=== PATIENT | female | born 1945 | race Caucasian/White ===

== ENCOUNTER → 2017-02-12 | Outpatient (CLI) | payer MEDICARE ==
--- NOTE | 2017-02-12 13:57 | MM ---
Reason for exam: screening (asymptomatic). Last mammogram was performed 2 years and 8 months ago. History: Patient is postmenopausal. Family history of premenopausal breast cancer in maternal aunt at age 46. Physical Findings: A clinical breast exam by your physician is recommended on an annual basis and results should be correlated with mammographic findings. MG Screening Mammo w CAD Bilateral CC and MLO view(s) were taken. Prior study comparison: June 11, 2014, bilateral MG screening mammo w CAD. April 09, 2012, bilateral digital screening mammo w/CAD. The breast tissue is heterogeneously dense. This may lower the sensitivity of mammography. There is chronic nodularity bilaterally. There is no dominant lesion. No significant changes when compared with prior studies. ASSESSMENT: Benign, BI-RAD 2 RECOMMENDATION: Routine screening mammogram of both breasts in 1 year.
== END | disposition home or self-care (01) ==
LOC: RADMAMWWP 08:09
PROVIDERS: ATTEND Family Medicine
DX: Z12.31 Encounter for screening mammogram for malignant neoplasm of breast (principal)

== ENCOUNTER → 2018-02-04 | Outpatient (CLI) | payer MEDICARE ==
--- NOTE | 2018-02-04 10:31 | BD ---
EXAMINATION TYPE: Axial Bone Density DATE OF EXAM: 02/04/2018 COMPARISON:2013 CLINICAL HISTORY: screening Height: 5'1 Weight: 166 FRAX RISK QUESTIONS: Secondary Osteoporosis: RISK FACTORS HISTORY OF: Postmenopausal woman: y MEDICATIONS: Additional Medications: cholesterol, anti depressant, bladder leakage, Flonase Additional History: EXAM MEASUREMENTS: Bone mineral densitometry was performed using the [employer] System. Bone mineral density as measured about the Lumbar spine is: ----- L1-L4(G/cm2): 1.365 T Score Values are as follows: ----- L2: 1.5 ----- L3: 2.2 ----- L4: 2.0 ----- L1-L4: 1.5 Bone mineral density has: Decreased -4.2% since study of: 06/11/2014 Bone mineral density about the R hip (g/cm2): 0.841 Bone mineral density about the L hip (g/cm2): 0.890 T Score values are as follows: -----R Neck: -1.4 -----L Neck: -1.1 -----R Total: -1.1 -----L Total: -0.6 Bone mineral density has: Decreased -5.3% since study of: 06/11/2014 IMPRESSION: Osteopenia (T Score between -2.5 and -1) at the femoral neck level in both hips. There is slightly increased risk of fracture and the patient may be considered for treatment. Re-Screen 2-5 years. NOTE: T-SCORE=SD OF THE YOUNG ADULT MEAN.
== END | disposition home or self-care (01) ==
LOC: RADBDWWP 08:34
PROVIDERS: ATTEND Family Medicine
DX: M85.89 Other specified disorders of bone density and structure, multiple sites (principal)
CPT/HCPCS: 77080

== ENCOUNTER → 2019-09-16 | Outpatient (CLI) | payer MEDICARE ==
--- NOTE | 2019-09-16 08:51 | MM ---
Reason for exam: clinical finding. Last mammogram was performed 1 year and 6 months ago. History: Patient is postmenopausal and history of other cancer. Family history of premenopausal breast cancer in maternal aunt at age 46. Indicated problem(s): pain in both breasts. Physical Findings: Nurse Summary: 0.5 x 0.5cm nodule in the left breast at 2 o'clock (nurse ts). MG 3D Diag Mammo W/Cad BALTA Bilateral CC and MLO view(s) were taken. Prior study comparison: March 21, 2018, bilateral MG 3d screening mammo w/cad. February 12, 2017, bilateral MG screening mammo w CAD. The breast tissue is heterogeneously dense. This may lower the sensitivity of mammography. There is chronic nodularity bilaterally. Nodular density far upper outer left breast may reflect lymph node. Ultrasound recommended. These results were verbally communicated with the patient and result sheet given to the patient on 09/16/19. ASSESSMENT: Incomplete: need additional imaging evaluation, BI-RAD 0 RECOMMENDATION: Ultrasound of the left breast. Manage patient on a clinical basis.
--- NOTE | 2019-09-16 08:53 | USB ---
Reason for exam: additional evaluation requested from abnormal screening. History: Patient is postmenopausal and history of other cancer. Family history of premenopausal breast cancer in maternal aunt at age 46. US Breast LT Left complete breast ultrasound includes all four quadrants, the retroareolar region and axilla. Finding demonstrates a 0.3 x 0.3 x 0.3cm oval, cystic lesion at 3 o'clock, a 0.8 x 0.8 x 0.4cm lymph node at 3 o'clcok and a 1.6 x 1.2 x 0.7cm lymph node at the axilla. These results were verbally communicated with the patient and result sheet given to the patient on 09/16/19. ASSESSMENT: Benign, BI-RAD 2 RECOMMENDATION: Routine screening mammogram of both breasts in 1 year. Manage patient on a clinical basis.
== END | disposition home or self-care (01) ==
LOC: RADMAMWWP 07:17
PROVIDERS: ATTEND Family Medicine
DX: N64.4 Mastodynia (principal)
CPT/HCPCS: 77066; 76641; G0279; 77062

== ENCOUNTER 2020-02-10 12:31 | Emergency (ER) | payer MEDICARE ==
[2020-02-10 12:37] VITALS: BP 94/61; PULSE 55; RESP 16; TEMP 97.7
[2020-02-10] MEDS ORDERED: DIPH,PERTUS(ACELL)TETVAC-LF 0.5 ML VIAL IM ONE (12:49)
[2020-02-10] MEDS ORDERED: LIDOCAINE 1%-EPI 1:100,000 20 ML VIAL SQ STA (12:50)
--- NOTE | 2020-02-10 12:57 | ED ---
Lower Extremity Injury HPI - General Chief Complaint: Extremity Injury, Lower Stated Complaint: fall/leg lac Time Seen by Provider: 02/10/20 12:39 Source: patient, RN notes reviewed, old records reviewed Mode of arrival: wheelchair Limitations: no limitations - History of Present Illness Initial Comments: Patient is a 74-year-old female who presents the emergency department today for evaluation for laceration over her right leg. Patient reports that she was carrying a cinderblock when she tripped and dropped a causing laceration over the right lower leg. She reports that her tetanus shot is not up-to-date. She denies any other injuries including head or neck pain related to the fall. Patient reports that she has full range of motion of the foot and ankle. - Related Data Previous Rx's Medication Instructions Recorded Sulfamethox-Tmp 800-160Mg [Bactrim 2 tab PO Q12HR #40 tab 02/10/20 DS 800-160 mg] Allergies Allergy/AdvReac Type Severity Reaction Status Date / Time Penicillins Allergy Swelling Verified 02/10/20 12:37 Review of Systems ROS Statement: Those systems with pertinent positive or pertinent negative responses have been documented in the HPI. ROS Other: All systems not noted in ROS Statement are negative. Past Medical History Past Medical History: Hyperlipidemia History of Any Multi-Drug Resistant Organisms: None Reported Past Surgical History: Cholecystectomy, Tonsillectomy Past Psychological History: Depression Smoking Status: Never smoker Past Alcohol Use History: None Reported Past Drug Use History: None Reported General Exam - General Exam Comments Initial Comments: 74-year-old female. No significant distress. Limitations: no limitations General appearance: alert Head exam: Present: atraumatic, normocephalic, normal inspection Eye exam: Present: normal appearance, PERRL, EOMI. Absent: scleral icterus, conjunctival injection, periorbital swelling ENT exam: Present: normal exam, mucous membranes moist Neck exam: Present: normal inspection. Absent: tenderness, meningismus, lymphadenopathy Cardiovascular Exam: Present: regular rate, normal rhythm, normal heart sounds. Absent: systolic murmur, diastolic murmur, rubs, gallop, clicks GI/Abdominal exam: Present: soft, normal bowel sounds. Absent: distended, tenderness, guarding, rebound, rigid Extremities exam: Present: normal inspection, full ROM, normal capillary refill. Absent: tenderness, pedal edema, joint swelling, calf tenderness Right Knee exam: Present: normal inspection, full ROM Lower Leg exam: Present: laceration (Patient has a 10 cm laceration over the right anterior lower leg near the ankle.). Absent: normal inspection Ankle exam: Present: normal inspection, full ROM Foot/Toe exam: Present: normal inspection, full ROM Neurovascular tendon exam: Present: no vascular compromise Back exam: Present: normal inspection Neurological exam: Present: alert, oriented X3, CN II-XII intact Psychiatric exam: Present: normal affect, normal mood Course Vital Signs 02/10/20 12:32 Temperature 97.7 F Pulse Rate 55 L Respiratory 16 Rate Blood Pressure 94/61 O2 Sat by Pulse 96 Oximetry Procedures - Laceration Laceration #1 Size (cm): 10 Description: linear Depth: simple, single layer Anesthetic Used: lidocaine 1% Anesthesia Technique: local infiltration Amount (mls): 10 Pre-repair: wound explored, irrigated extensively Type of Sutures: nylon Size of Sutures: 4-0 Number of Sutures: 12 Technique: simple, interrupted Patient Tolerated Procedure: well, no complications Medical Decision Making - Medical Decision Making 74-year-old female presents emergency department today for evaluation for concern for laceration of her right lower leg. Patient's cut it on a cinderblock that she tripped and fell drop in her hand. Patient is a 10 cm laceration the wound was closed with 12 sutures. Wound was thoroughly irriga chriss. X-ray shows no fracture or soft tissue foreign bodies. Patient tolerated procedure well. Discussed putting the Patient on antibiotics to ensure no infection and discussed wound care. - Radiology Data Radiology results: report reviewed Soft tissue laceration over the posterior medial distal leg. No radiopaque foreign body. No acute osseous abnormality. Disposition Clinical Impression: Leg laceration Disposition: HOME SELF-CARE Condition: Good Instructions (If sedation given, give patient instructions): Laceration (ED) Additional Instructions: Please return to the emergency room in 8-10 days to have sutures removed. Please leave wound covered for the first 24-48 hours and then leave open to air after that time. Please use clean soap and water to clean the suture area to prevent scabbing over the top of your sutures. Please follow-up with your primary care doctor early next week for wound recheck. Please watch for any signs of infection which may include but not limited to increased pain, swelling, redness, fever or chills. Please return to the emergency room if any signs of infection do occur. Please return to the emergency room for any other concerns or complications. Prescriptions: Sulfamethox-Tmp 800-160Mg [Bactrim DS 800-160 mg] 2 tab PO Q12HR #40 tab Is patient prescribed a controlled substance at d/c from ED?: No Referrals: Meenu Bates DO [Primary Care Provider] - 1-2 days Time of Disposition: 14:17
--- NOTE | 2020-02-10 13:21 | XR ---
EXAMINATION TYPE: XR tibia fibula RT DATE OF EXAM: 02/10/2020 CLINICAL HISTORY: Laceration on right lower extremity from fall TECHNIQUE: Two views of the right tibia and fibula are obtained. COMPARISON: None. FINDINGS: There is no acute fracture or dislocation seen in the right tibia or fibula. The ankle shannon nt appears within normal limits. There is medial compartment degenerative change of the right knee. T here is soft tissue irregularity, laceration, and subcutaneous gas of the medial and posterior distal lower leg. No evidence of radiopaque foreign body. IMPRESSION: Soft tissue laceration of the posteromedial distal lower leg. No radiopaque foreign body. No acute osseous abnormality.
[2020-02-10] MEDS ORDERED: TOPICAL SKIN ADHESIVE 1 EACH AMP TOPICAL ONE (14:05)
== END 2020-02-10 14:25 | disposition home or self-care (01) ==
LOC: EC 12:31
DX: S81.811A Laceration without foreign body, right lower leg, initial encounter (principal); Z23 Encounter for immunization; Z88.0 Allergy status to penicillin; W20.8XXA Other cause of strike by thrown, projected or falling object, initial encounter
CPT/HCPCS: 12004; 90471; 90715; 99283

== ENCOUNTER → 2020-02-22 | Outpatient (CLI) | payer MEDICARE ==
--- NOTE | 2020-02-22 10:56 | US ---
EXAMINATION TYPE: US venous doppler duplex LE RT DATE OF EXAM: 02/22/2020 10:48 AM COMPARISON: NONE CLINICAL HISTORY: Right lower extremity calf pain. Pain and swelling SIDE PERFORMED: Right TECHNIQUE: The lower extremity deep venous system is examined utilizing real time linear array sonog hannah with graded compression, doppler sonography and color-flow sonography. VESSELS IMAGED: External Iliac Vein (EIV) Common Femoral Vein Deep Femoral Vein Greater Saphenous Vein * Femoral Vein Popliteal Vein Small Saphenous Vein * Proximal Calf Veins (* superficial vessels) Right Leg: Negative for DVT Grayscale, color doppler, spectral doppler imaging performed of the deep veins of the right lower ext remity. There is normal flow, compressibility, vascular waveforms. IMPRESSION: No ultrasound evidence for acute DVT in the right lower extremity.
== END | disposition home or self-care (01) ==
LOC: RADUSWWP 10:29
PROVIDERS: ATTEND Family Medicine
DX: M79.604 Pain in right leg (principal)

== ENCOUNTER → 2020-02-26 | Outpatient (CLI) | payer MEDICARE ==
[2020-02-26 13:15] LABS: Basophils # (A) 0.1 k/uL (0-0.2); Basophils % (A) 1 %; Eosinophils # (A) 0.1 k/uL (0-0.7); Eosinophils % (A) 1 %; HCT 37.5 % (34.0-46.0); HGB 11.8 gm/dL (11.4-16.0); Lymphocytes # (A) 1.1 k/uL (1.0-4.8); Lymphocytes % (A) 18 %; MCH 29.6 pg (25.0-35.0); MCHC 31.4 g/dL (31.0-37.0); MCV 94.2 fL (80.0-100.0); Mean Platelet Volume 6.8; Monocytes # (A) 0.3 k/uL (0-1.0); Monocytes % (A) 5 %; Neutrophils # (A) 4.5 k/uL (1.3-7.7); Neutrophils % (A) 74 %; Platelet Count 428 k/uL (150-450); RBC 3.98 m/uL (3.80-5.40); RDW 13.8 % (11.5-15.5)
[2020-02-26 18:54] LABS: African American GFR (CKD) 64.3 (60.0-200.0); Albumin 3.8 g/dL (3.80-4.90); Albumin/Globulin Ratio 1.9 (1.60-3.17); Anion Gap 7.3 mmol/L (4.00-12.00); Calcium 9.3 mg/dL (8.7-10.3); Carbon Dioxide 26.7 mmol/L (21.6-31.8); Non-African American GFR(CKD) 55.5 (60.0-200.0); Potassium 4.7 mmol/L (3.5-5.5); Total Bilirubin 0.3 mg/dL (0.3-1.2); Total Protein 5.8 g/dL (6.2-8.2)
== END | disposition home or self-care (01) ==
LOC: LABWHC1 11:54
PROVIDERS: ATTEND Podiatrist
DX: I73.9 Peripheral vascular disease, unspecified (principal); Z88.0 Allergy status to penicillin; L97.812 Non-pressure chronic ulcer of other part of right lower leg with fat layer exposed; L03.115 Cellulitis of right lower limb; I10 Essential (primary) hypertension
CPT/HCPCS: 36415; 80053; 84134; 85025

== ENCOUNTER → 2020-03-01 | Outpatient (CLI) | payer MEDICARE ==
--- NOTE | 2020-03-02 12:15 | P.ARTDOP ---
Arterial Doppler LOWER EXTREMITY ARTERIAL DOPPLER: DATE OF SERVICE: 03/01/2020 Reason for study: Ulcer right calf. Doppler waveforms: Multiphasic bilaterally throughout, digits somewhat blunted. Pulse volume recording: []. Pressure gradients: None. Ankle-brachial indices: Greater than 1 bilaterally. Toe brachial indices: [] on the right, [] on the left Impression: Normal study. Flattened toe waveforms more likely related to peripheral vasoconstriction..
== END | disposition home or self-care (01) ==
LOC: RADUSWWP 08:26
PROVIDERS: ATTEND Podiatrist
DX: I73.9 Peripheral vascular disease, unspecified (principal); Z88.0 Allergy status to penicillin
CPT/HCPCS: 93922; 93923

== ENCOUNTER 2020-07-13 22:07 | Emergency (ER) | payer MEDICARE ==
[2020-07-13 22:11] VITALS: TEMP 99.6
[2020-07-13] MEDS ORDERED: SODIUM CHLORIDE 0.9% 1,000 ML IV STA (22:35)
[2020-07-13] MEDS ORDERED: METOCLOPRAMIDE 5 MG/ML 2 ML VIAL IVP STA (23:02)
[2020-07-13] MEDS ORDERED: MORPHINE SULFATE 4 MG/ML SYRINGE IVP STA (23:02)
[2020-07-13] MEDS ORDERED: SENNOSIDES-DOCUSATE SODIUM 1 EACH TAB PO STA (23:02)
--- NOTE | 2020-07-13 23:03 | ED ---
Abdominal Pain HPI - General Chief Complaint: Abdominal Pain Stated Complaint: Constipation Time Seen by Provider: 07/13/20 22:25 Source: patient, RN notes reviewed, old records reviewed Mode of arrival: ambulatory Limitations: no limitations - History of Present Illness Initial Comments: This is a 74-year-old female who states that she does have history of constipation coming with bowel issues. Patient is concern for diffuse abdominal pain inability to have a successful bowel movement for a few days now. Patient does have small bowel movements but does not feel like there fall. Otherwise she has no nausea no vomiting no fevers no other complaints. She has had history of issues with constipation for years MD Complaint: abdominal pain, other (Constipation) -: days(s) Location: diffuse, epigastric, suprapubic Radiation: epigastric, suprapubic Migration to: epigastric, suprapubic Severity: moderate Quality: cramping, aching Consistency: constant Improves With: nothing Worsens With: nothing Associated Symptoms: nausea, vomiting - Related Data Home Medications Medication Instructions Recorded Confirmed Aspirin 81 mg PO DAILY 07/13/20 07/13/20 Atorvastatin Calcium [Lipitor] 40 mg PO DAILY 07/13/20 07/13/20 Calcium Carbonate [Calcium] 600 mg PO DAILY 07/13/20 07/13/20 Celecoxib [CeleBREX] 200 mg PO DAILY 07/13/20 07/13/20 DULoxetine HCL [Cymbalta] 60 mg PO DAILY 07/13/20 07/13/20 Docusate [Colace] 100 mg PO Q6H PRN 07/13/20 07/13/20 Fluticasone Nasal [place] [Flonase 1 spray EA NOSTRIL DAILY 07/13/20 07/13/20 Nasal [place]] Glucosamine Sulfate 500 mg PO DAILY 07/13/20 07/13/20 L.acidoph,Paracasei, B.lactis 1 tab PO DAILY 07/13/20 07/13/20 [Probiotic] Loratadine [Claritin] 10 mg PO DAILY PRN 07/13/20 07/13/20 Lubiprostone [Amitiza] 48 mcg PO DAILY 07/13/20 07/13/20 Magnesium Citrate [Citrate of 296 ml PO ONCE PRN 07/13/20 07/13/20 Magnesia] Magnesium Oxide [Mag-Ox] 250 mg PO DAILY 07/13/20 07/13/20 Multivitamins, Thera [Multivitamin 1 tab PO DAILY 07/13/20 07/13/20 (formulary)] Na Phos,M-B/Na Phos,Di-Ba [Fleet 133 ml RECTAL Q12H PRN 07/13/20 07/13/20 Adult] Omeprazole 20 mg PO DAILY 07/13/20 07/13/20 buPROPion SR [Wellbutrin SR] 100 mg PO DAILY 07/13/20 07/13/20 polyethylene glycoL 3350 [Miralax] 17 gm PO DAILY PRN 07/13/20 07/13/20 Allergies Allergy/AdvReac Type Severity Reaction Status Date / Time Penicillins Allergy Swelling Verified 07/13/20 23:06 Review of Systems ROS Statement: Those systems with pertinent positive or pertinent negative responses have been documented in the HPI. ROS Other: All systems not noted in ROS Statement are negative. Past Medical History Past Medical History: Hyperlipidemia, Rheumatoid Arthritis (RA) Additional Past Medical History / Comment(s): constipation History of Any Multi-Drug Resistant Organisms: None Reported Past Surgical History: Cholecystectomy, Tonsillectomy Past Psychological History: Depression Smoking Status: Never smoker Past Alcohol Use History: None Reported Past Drug Use History: None Reported General Exam Limitations: no limitations General appearance: alert, in no apparent distress Head exam: Present: atraumatic, normocephalic, normal inspection Eye exam: Present: normal appearance, PERRL, EOMI. Absent: scleral icterus, conjunctival injection, periorbital swelling ENT exam: Present: normal exam, mucous membranes moist Neck exam: Present: normal inspection. Absent: tenderness, meningismus, lymphadenopathy Respiratory exam: Present: normal lung sounds bilaterally. Absent: respiratory distress, wheezes, rales, rhonchi, stridor Cardiovascular Exam: Present: regular rate, normal rhythm, normal heart sounds. Absent: systolic murmur, diastolic murmur, rubs, gallop, clicks GI/Abdominal exam: Present: soft, normal bowel sounds. Absent: distended, tenderness, guarding, rebound, rigid Extremities exam: Present: normal inspection, full ROM, normal capillary refill. Absent: tenderness, pedal edema, joint swelling, calf tenderness Back exam: Present: normal inspection Neurological exam: Present: alert, oriented X3, CN II-XII intact Psychiatric exam: Present: normal affect, normal mood Skin exam: Present: warm, dry, intact, normal color. Absent: rash Course Vital Signs 07/13/20 07/14/20 22:09 01:31 Temperature 99.6 F Pulse Rate 94 81 Respiratory 20 16 Rate Blood Pressure 150/79 154/87 O2 Sat by Pulse 99 98 Oximetry - Reevaluation(s) Reevaluation #1: Medical record is reviewed Patient without successful bowel movement here in the ER Pain and symptoms are improved Patient is informed of results and questions are answered Medical Decision Making - Medical Decision Making 74 female of constipation, patient has no severe serious noted constipation or obstruction here in the ER, given an enema here in the ER with no significant success the patient can be discharged home - Lab Data Result diagrams: 07/13/20 22:51 07/13/20 22:51 Lab Results 07/13/20 07/13/20 07/13/20 Range/Units 22:51 22:51 22:51 WBC 12.7 H (3.8-10.6) k/uL RBC 4.94 (3.80-5.40) m/uL Hgb 14.9 (11.4-16.0) gm/dL Hct 43.9 (34.0-46.0) % MCV 88.9 (80.0-100.0) fL MCH 30.2 (25.0-35.0) pg MCHC 34.0 (31.0-37.0) g/dL RDW 12.4 (11.5-15.5) % Plt Count 271 (150-450) k/uL MPV 6.6 Neutrophils % 83 % Lymphocytes % 9 % Monocytes % 5 % Eosinophils % 1 % Basophils % 1 % Neutrophils # 10.5 H (1.3-7.7) k/uL Lymphocytes # 1.2 (1.0-4.8) k/uL Monocytes # 0.7 (0-1.0) k/uL Eosinophils # 0.1 (0-0.7) k/uL Basophils # 0.1 (0-0.2) k/uL Sodium 135 L (137-145) mmol/L Potassium 4.2 (3.5-5.1) mmol/L Chloride 101 (98-107) mmol/L Carbon Dioxide 28 (22-30) mmol/L Anion Gap 6 mmol/L BUN 13 (7-17) mg/dL Creatinine 0.56 (0.52-1.04) mg/dL Est GFR (CKD-EPI)AfAm >90 (>60 ml/min/1.73 sqM) Est GFR (CKD-EPI)NonAf >90 (>60 ml/min/1.73 sqM) Glucose 116 H (74-99) mg/dL Plasma Lactic Acid Pop 1.4 (0.7-2.0) mmol/L Calcium 9.3 (8.4-10.2) mg/dL Total Bilirubin 0.6 (0.2-1.3) mg/dL AST 36 (14-36) U/L ALT 31 (4-34) U/L Alkaline Phosphatase 85 (38-126) U/L Total Protein 6.8 (6.3-8.2) g/dL Albumin 4.1 (3.5-5.0) g/dL Amylase 48 (30-110) U/L Lipase 89 (23-300) U/L - Radiology Data Radiology results: report reviewed (X-ray abdominal series and chest as well as CT of the abdomen and pelvis is negative for acute disease), image reviewed Disposition Clinical Impression: Constipation, Abdominal pain Disposition: HOME SELF-CARE Condition: Good Instructions (If sedation given, give patient instructions): Abdominal Pain (ED) Is patient prescribed a controlled substance at d/c from ED?: No Referrals: Meenu Bates DO [Primary Care Provider] - 1-2 days
[2020-07-13 23:12] LABS: Basophils # (A) 0.1 k/uL (0-0.2); Basophils % (A) 1 %; Eosinophils # (A) 0.1 k/uL (0-0.7); Eosinophils % (A) 1 %; HCT 43.9 % (34.0-46.0); HGB 14.9 gm/dL (11.4-16.0); Lymphocytes # (A) 1.2 k/uL (1.0-4.8); Lymphocytes % (A) 9 %; MCH 30.2 pg (25.0-35.0); MCV 88.9 fL (80.0-100.0); Mean Platelet Volume 6.6; Monocytes # (A) 0.7 k/uL (0-1.0); Monocytes % (A) 5 %; Neutrophils # (A) 10.5 k/uL (1.3-7.7); Neutrophils % (A) 83 %; Platelet Count 271 k/uL (150-450); RBC 4.94 m/uL (3.80-5.40); RDW 12.4 % (11.5-15.5); WBC 12.7 k/uL (3.8-10.6)
[2020-07-13 23:28] LABS: ALT 31 U/L (4-34); AST 36 U/L (14-36); African American GFR (CKD) >90 (>60 ml/min/1.73 sqM); Albumin 4.1 g/dL (3.5-5.0); Alkaline Phosphatase 85 U/L (38-126); Amylase 48 U/L (30-110); Anion Gap 6 mmol/L; Blood Urea Nitrogen 13 mg/dL (7-17); Calcium 9.3 mg/dL (8.4-10.2); Carbon Dioxide 28 mmol/L (22-30); Chloride 101 mmol/L (98-107); Glucose 116 mg/dL (74-99); Lipase 89 U/L (23-300); Non-African American GFR(CKD) >90 (>60 ml/min/1.73 sqM); Potassium 4.2 mmol/L (3.5-5.1); Sodium 135 mmol/L (137-145); Total Bilirubin 0.6 mg/dL (0.2-1.3); Total Protein 6.8 g/dL (6.3-8.2)
--- NOTE | 2020-07-14 00:18 | XR ---
EXAM: XR Abdomen, 2 Views and XR Chest, 1 View CLINICAL HISTORY: None. TECHNIQUE: Frontal view of the chest, frontal view of the abdomen/pelvis and upright or decubitus view of the abdomen. COMPARISON: No relevant prior studies available. FINDINGS: Lungs: Unremarkable. No consolidation. Pleural space: Unremarkable. No pneumothorax. Heart: Unremarkable. No cardiomegaly. Mediastinum: Unremarkable. Intraperitoneal space: No free air. Gastrointestinal tract: Extensive gas within the upper aspect of the colon. Appearance of increased stool within the left aspect of the colon. No evidence of bowel obstruction. Organs: Evidence of previous cholecystectomy. Bones/joints: Unremarkable. IMPRESSION: Scattered colon gas. No evidence of small bowel obstruction or free intraperitoneal air.
[2020-07-14] MEDS ORDERED: DICYCLOMINE 10 MG/ML 2 ML AMP IM STA (01:03)
[2020-07-14 01:32] VITALS: BP 154/87; PULSE 81; RESP 16
--- NOTE | 2020-07-14 01:41 | CT ---
EXAM: CT Abdomen and Pelvis With Intravenous Contrast CLINICAL HISTORY: Pain. TECHNIQUE: Axial computed tomography images of the abdomen and pelvis with intravenous contrast. CTDI is 13.57 mGy and DLP is 632 mGy-cm. This CT exam was performed using one or more of the following dose reduction techniques: automated exposure control, adjustment of the mA and/or kV according to patient size, and/or use of iterative reconstruction technique. COMPARISON: No relevant prior studies available. FINDINGS: Lung bases: Unremarkable. No mass. No consolidation. ABDOMEN: Liver: Several hepatic cysts with a 3.5 cm cyst in the posterior right lobe. No mass. Gallbladder and bile ducts: Prominent intrahepatic bile ducts. Previous cholecystectomy. Large common bile duct at 12 mm. Pancreas: Unremarkable. No mass. No ductal dilation. Spleen: Unremarkable. No splenomegaly. Adrenals: Unremarkable. No mass. Kidneys and ureters: Unremarkable. No solid mass. No hydronephrosis. Stomach and bowel: There appears to be distal perirectal edema which may be related to proctitis. No evidence of bowel obstruction. Extensive stool and fluid within the colon. PELVIS: Appendix: No findings to suggest acute appendicitis. Bladder: Unremarkable. No mass. Reproductive: Unremarkable as visualized. ABDOMEN and PELVIS: Intraperitoneal space: Unremarkable. No free air. No significant fluid collection. Bones/joints: No acute fracture. No dislocation. Soft tissues: Unremarkable. Vasculature: Unremarkable. No abdominal aortic aneurysm. Lymph nodes: Unremarkable. No enlarged lymph nodes. IMPRESSION: There appears to be distal perirectal edema which may be related to proctitis. Intrahepatic and extra hepatic bile duct dilatation, even given allowances for patient age and previous cholecystectomy. Correlate with liver function tests.
== END 2020-07-14 02:35 | disposition home or self-care (01) ==
LOC: EC 22:07
DX: K59.00 Constipation, unspecified (principal); Z88.0 Allergy status to penicillin; E78.5 Hyperlipidemia, unspecified; M06.9 Rheumatoid arthritis, unspecified; F32.9 Major depressive disorder, single episode, unspecified; Z79.82 Long term (current) use of aspirin; Z79.899 Other long term (current) drug therapy; Z79.1 Long term (current) use of non-steroidal anti-inflammatories (NSAID); Z90.49 Acquired absence of other specified parts of digestive tract
CPT/HCPCS: 80053; 82150; 83605; 83690; 85025; 74022; 74177; 99285; 96374; 96375; 96372; 96361; J2270; J0500; J2765; Q9967

== ENCOUNTER → 2020-12-29 | Outpatient (CLI) | payer MEDICARE ==
--- NOTE | 2020-12-29 16:41 | BD ---
EXAMINATION TYPE: Axial Bone Density DATE OF EXAM: 12/29/2020 COMPARISON: NONE CLINICAL HISTORY: Height: 61 Weight: 119.1 FRAX RISK QUESTIONS: Alcohol (3 or more units per day): no Family History (Parent hip fracture): no Glucocorticoids (More than 3mos): no (Ex: prednisone, prednisolone, methylprednisolone, dexamethasone, and hydrocortisone). History of Fracture in Adulthood: no Secondary Osteoporosis: 1. Type 1 Diabetes: no 2. Hyperthyroidism: no 3. Menopause before 45: no 4. Malnutrition: no 5. Chronic liver disease: no Rheumatoid Arthritis: no Current Tobacco Use: no RISK FACTORS HISTORY OF: Surgery to Spine/Hip(right/left)/Wrist (right/left): no Family History of Osteoporosis: yes Active: yes Diet low in dairy products/other sources of calcium: no Postmenopausal woman: age 50 Lost more than 2 inches in height since high school: no MEDICATIONS: cymbalta, omeprazole, loratadine, probiotic, atorvastatin, fluticasone, vitamins Additional History: EXAM MEASUREMENTS: Bone mineral densitometry was performed using the [employer] System. Bone mineral density as measured about the Lumbar spine is: ----- L1-L4(G/cm2): 1.283 T Score Values are as follows: ----- L2: 0.8 ----- L3: 2.0 ----- L4: 1.0 ----- L1-L4: 0.9 Bone mineral density has: decreased -4.9 % since study of: 02.04.2018 Bone mineral density about the R hip (g/cm2): 0.795 Bone mineral density about the L hip (g/cm2): 0.850 T Score values are as follows: -----R Neck: -1.7 -----L Neck: -1.4 -----R Total: -1.6 -----L Total: -1.3 Bone mineral density has: decreased -9.0 % since study of: 02.04.2018 IMPRESSION: Osteopenia (T Score between -2.5 and -1). There is slightly increased risk of fracture and the patient may be considered for treatment. Re-Screen 2-5 years. NOTE: T-SCORE=SD OF THE YOUNG ADULT MEAN.
== END | disposition home or self-care (01) ==
LOC: RADBDWWP 10:42
PROVIDERS: ATTEND Family Medicine
DX: Z13.820 Encounter for screening for osteoporosis (principal); M85.89 Other specified disorders of bone density and structure, multiple sites
CPT/HCPCS: 77080